=== PATIENT | female | born 1975 | race Caucasian/White ===

== ENCOUNTER 2017-12-01 14:13 | Observation (INO) | payer OTHER ==
[~2017-12-01] VITALS: Ht 162.6 cm; Wt 70.3 kg
[2017-12-01] MEDS ORDERED: SODIUM CHLORIDE 0.9% 1,000 ML IVB ONE (14:39)
[2017-12-01 15:08] LABS: Basophils # (auto) 0 uL; Basophils % (auto) 0.4 % (0.0-2.0); Eosinophils # (auto) 0.1 uL; Eosinophils % (auto) 1.6 % (0.0-7.0); Hematocrit 38.1 % (36.0-46.0); Hemoglobin 12.8 g/dL (12.2-16.2); Lymphocytes % (auto) 36.4 % (10.0-50.0); Mean Corpuscular Hgb Conc. 33.6 g/dL (32.0-36.0); Mean Corpuscular Volume 95.1 fL (80.0-100.0); Monocytes # (auto) 0.4 uL; Monocytes % (auto) 6.9 % (0.0-12.0); Neutrophils % (auto) 54.7 % (37.0-80.0); Nucleated Red Blood Cells % 0.1 %; Platelet Count (auto) 241 10^3/uL (140-450); Red Blood Cells 4.01 10^6/uL (4.0-5.20); Red Cell Distribution Width 13.2 % (11.8-14.3); White Blood Cell 5.5 10^3/uL (4.4-10.8)
[2017-12-01 15:22] LABS: Albumin 3.6 g/dL (3.4-5.0); BUN/Creatinine Ratio 12.8; Bilirubin, Total 0.3 mg/dL (0.2-1.0); Calcium 8.2 mg/dL (8.5-10.1); Potassium 3.5 mmol/L (3.5-5.1); Total Protein 6.8 g/dL (6.4-8.2)
[2017-12-01 15:28] LABS: INR 0.99 (0.9-1.15); Partial Thromboplastin Time 30.3 sec (23.78-33.04); Prothrombin Time 10.6 sec (9.27-12.13)
[2017-12-01 16:19] LABS: Urine Bacteria NONE SEEN /hpf (None Seen); Urine Blood Negative /uL (Negative); Urine Mucus FEW (None Seen); Urine Specific Gravity 1.004 (1.001-1.035); Urine WBC 1 /hpf (0 - 5)
[2017-12-01] MEDS ORDERED: KETOROLAC TROMETH 30 MG/ML 1ML VIAL IV ONE (17:00)
[2017-12-01] MEDS ORDERED: PROMETHAZINE HCL 25 MG/ML 1ML IV ONE (17:15)
[2017-12-01] MEDS ORDERED: SODIUM CHLORIDE 0.9% 1,000 ML IV ONE (17:15)
[2017-12-01] MEDS ORDERED: ONDANSETRON HCL 4 MG/2 ML VIAL IV ONE (17:15)
[2017-12-01] MEDS ORDERED: MORPHINE SULF INJ 2 MG/ML SYRINGE 1ML IV ONE (17:30)
[2017-12-01 19:43] VITALS: BP 138/97
== END 2017-12-01 21:05 | disposition home or self-care (01) | DRG 694 ==
LOC: EDBD 14:13 → ER 14:13 → OVERFLOW 14:14 → ER 21:05
PROVIDERS: ADMIT Family Medicine; ATTEND Family Medicine
DX: N20.0 Calculus of kidney (principal); R10.9 Unspecified abdominal pain; R11.2 Nausea with vomiting, unspecified; M79.7 Fibromyalgia
CPT/HCPCS: 36415; 70450; 71045; 74176; 80053; 81001; 82962; 83735; 84484; 85025; 85610; 85730; 93005; 96361; 96374; 96375; 99285; G0378; J1885; J2270; J2550

== ENCOUNTER 2025-01-02 18:55 | Emergency (ER) | payer OTHER ==
[~2025-01-02] VITALS: Ht 160 cm; Wt 66.1 kg
--- NOTE | 2025-01-02 19:42 | ED.PDOC ---
GI ASSESSMENT HPI Comments 49-year-old female who came to ER for abdominal pain. Patient has been experiencing sharp, constant right lower quadrant abdominal pain since this morning, radiating to her right flank and back area. She does have history of kidney stones, claims pain is not similar to kidney stones. Noted to have nausea but denies any vomiting or changes in bowel habits Chief Complaint: Abdominal Pain Time Seen by MD: 19:42 Primary Care Provider: NONE Reviewed Notes: Nurses Notes Allergies: Coded Allergies: Sulfa Antibiotics (Verified Allergy, Severe, 02/11/15) Home Meds Active Scripts Ondansetron HCl (Ondansetron Hydrochloride) 8 Mg Tab, 8 MG PO Q6HP PRN, #30 TAB Prov:VINAY BRICENO MD 01/02/25 Gabapentin (Once-Daily) (Gabapentin) 300 Mg Tab, 300 MG PO Q6HP PRN, #30 TAB Prov:VINAY BRICENO MD 01/02/25 Ondansetron HCl (Ondansetron Hydrochloride) 8 Mg Tab, 8 MG PO Q6HP PRN, #30 TAB Prov:VINAY BRICENO MD 01/02/25 Gabapentin (Once-Daily) (Gabapentin) 300 Mg Tab, 300 MG PO Q6HP PRN, #30 TAB Prov:VIANY BRICENO MD 01/02/25 Information Source: Patient Mode of Arrival: Ambulatory Timing: Hours Duration: Since onset Prehospital treatment: None Quality: Sharp, Stabbing Vomitus: None Stool: Normal Severity: Moderate Recent: None Recent Hx of: Abdominal Surgery Pain Location: RLQ Modifying Factors: Nothing Associated sign and symptoms: Nausea, Abdominal Pain Past Medical History PAST MEDICAL HISTORY: Kidney Stones Surgical History: Cholecystectomy, Hysterectomy Surgical History (Other): Hemorrhoidectomy ACCOUNT MANAGEMENT ASSISTANT History: Denies all ACCOUNT MANAGEMENT ASSISTANT Hx Family History Family History: No family hx of Heart ary, No family hx of HTN Social History Smoker: Non-Smoker Alcohol: Denies ETOH Use Drugs: Marijuana Lives In: Home Constitutional: denies: chills, diaphoresis, fatigue, fever, malaise, sweats, weakness, others EENTM: denies: blurred vision, double vision, ear bleeding, ear discharge, ear drainage, ear pain, ear ringing, eye pain, eye redness, hearing loss, mouth pain, mouth swelling, nasal discharge, nose bleeding, nose congestion, nose pain, photophobia, tearing, throat pain, throat swelling, voice changes, others Respiratory: denies: cough, hemoptysis, orthopnea, SOB at rest, shortness of breath, SOB with excertion, stridor, wheezing, others Cardiovascular: denies: chest pain, dizzy spells, diaphoresis, Dyspnea on exertion, edema, irregular heart beat, left arm pain, lightheadedness, palpitations, PND, syncope, others Gastrointestinal: reports: abdominal pain, nausea; denies: abdomen distended, blood streaked bowels, constipated, diarrhea, dysphagia, difficulty swallowing, hematemesis, melena, poor appetite, poor fluid intake, rectal bleeding, rectal pain, vomiting, others Genitourinary: denies: abnormal vagina bleeding, burning, dyspareunia, dysuria, flank pain, frequency, hematuria, incontinence, pain, , vagina discharge, urgency, others Neurological: denies: dizziness, fainting, headache, left sided numbness, left sided weakness, numbness, paresthesia, pre-existing deficit, right sided numbness, right sided weakness, seizure, speech problems, tingling, tremors, weakness, others Musculoskeletal: reports: back pain; denies: gout, joint pain, joint swelling, muscle pain, muscle stiffness, neck pain, others Integumetry: denies: bruises, change in color, change in hair/nails, dryness, laceration, lesions, lumps, rash, wounds, others Allergic/Immunocompromised: denies: Difficulty Healing, Frequent Infections, Hives, Itching, others Hematologic/Lymphatic: denies: anemia, blood clots, easy bleeding, easy bruising, swollen glands, others Endocrine: denies: excessive hunger, excessive sweating, excessive thirst, excessive urination, flushing, intolerance to cold, intolerance to heat, unexplained weight gain, unexplained weight loss, others Psychiatric: denies: anxiety, bipolar disorder, depression, hopeless, panic disorder, schizophrenia, sleepless, suicidal, others Physical Exam General Appearance: No Apparent Distress, Normal HEENT: Normal ENT Inspection, Pharynx Normal, TMs Normal Neck: Full Range of Motion, Non-Tender, Normal, Normal Inspection Respiratory: Chest Non-Tender, Lungs Clear, No Accessory Muscle Use, No Respiratory Distress, Normal Breath Sounds Cardiovascular: No Edema, No JVD, No Murmur, No Gallop, Normal Peripheral Pulses, Regular Rate/Rhythm Breast Exam: Deferred Gastrointestinal: No Organomegaly, No Pulsatile Mass, Normal Bowel Sounds, RLQ, Soft, Tenderness Genitalia: Deferred Pelvic: Deferred Rectal: Deferred Extremities: No calf tenderness, Normal capillary refill, Normal inspection, Normal range of motion, Non-tender, No pedal edema Musculoskeletal : Apperance: Normal Neurologic: Alert, customer care assistant II-XII nml as Tested, No Motor Deficits, Normal Affect, Normal Mood, No Sensory Deficits Cerebellar Function: Normal Reflexes: Normal Skin: Dry, Normal Color, Warm Lymphatic: No Adenopathy Was a procedure done? Was a procedure done?: No GI differential Dx Differential Diagnosis: Appendicitis, Constipation, Diverticular disease, Gastritis/PUD, Gastroenteritis, Ovarian cyst/torsion, Pancreatitis, PID, UTI, Urolithiasis X-Ray, Labs, Meds, VS Vital Signs Date Time Temp Pulse Resp B/P (MAP) Pulse Ox O2 Delivery O2 Flow Rate FiO2 01/02/25 22:55 Room Air* 0 21 01/02/25 22:55 97.7 89 16 137/87 (104) 98 97.7 01/02/25 18:58 97.8 92 17 142/89 96 97.8 Lab Test 01/02/25 21:05 01/02/25 19:43 Range/Units Urine Color Light-yellow Yellow Urine Clarity Clear Clear Urine pH 6.0 5.0-9.0 Urine Specific [place] 1.015 1.001-1.035 Urine Protein Negative Negative Urine Ketones Negative Negative Urine Blood Negative Negative /uL Urine Nitrite Negative Negative Urine Bilirubin Negative Negative Urine Urobilinogen Normal Negative mg/dL Urine Leukocyte Esterase Negative Negative /uL Urine RBC 1 0 - 4 /hpf Urine Microscopic WBC 1 0-5 /HPF Urine Squamous Epithelial Cells Few <5 /hpf Urine Bacteria None seen None Seen /hpf Urine Glucose Normal Normal mg/dL White Blood Count 9.2 4.4-10.8 10^3/uL Red Blood Count 4.46 4.0-5.20 10^6/uL Hemoglobin 14.3 12.2-16.2 g/dL Hematocrit 41.8 36.0-46.0 % Mean Corpuscular Volume 93.7 80.0-100.0 fL Mean Corpuscular Hemoglobin 32.0 28.0-32.0 pg Mean Corpuscular Hemoglobin Concent 34.2 32.0-36.0 g/dL Red Cell Distribution Width 13.6 11.8-14.3 % Platelet Count 298 140-450 10^3/uL Mean Platelet Volume 8.4 6.9-10.8 fL Neutrophils (%) (Auto) 58.1 37.0-80.0 % Lymphocytes (%) (Auto) 32.1 10.0-50.0 % Monocytes (%) (Auto) 7.6 0.0-12.0 % Eosinophils (%) (Auto) 1.9 0.0-7.0 % Basophils (%) (Auto) 0.3 0.0-2.0 % Neutrophils # (Auto) 5.3 1.6-8.6 10 ^3/uL Lymphocytes # (Auto) 3.0 0.4-5.4 10 ^3/uL Monocytes # (Auto) 0.7 0-1.3 10 ^3/uL Eosinophils # (Auto) 0.2 0-0.8 10 ^3/uL Basophils # (Auto) 0 0-0.2 10 ^3/uL Nucleated Red Blood Cells 0.0 % Sodium Level 139 136-145 mmol/L Potassium Level 4.0 3.5-5.1 mmol/L Chloride Level 104 98-107 mmol/L Carbon Dioxide Level 28 20-31 mmol/L Anion Gap 7 5-15 Blood Urea Nitrogen 14 9-23 mg/dL Creatinine 0.83 0.550-1.02 mg/dL Glomerular Filtration Rate Calc 86 >90 mL/min BUN/Creatinine Ratio 16.9 10.0-20.0 Serum Glucose 85 74-106 mg/dL Calcium Level 9.6 8.7-10.4 mg/dL Total Bilirubin 0.2 0.2-1.0 mg/dL Aspartate Amino Transferase (AST) 18 13-40 U/L Alanine Aminotransferase (ALT) 11 7-40 U/L Alkaline Phosphatase 73 46-116 U/L Total Protein 7.3 5.7-8.2 g/dL Albumin 4.5 3.2-4.8 g/dL Lipase 48 12-53 U/L Current Medications Medications (Trade) Dose Ordered Sig/Bennie Route Start Time Stop Time Status Last Admin Ondansetron HCl (Zofran Po) 4 mg ONCE ONCE PO 01/02/25 19:45 01/02/25 19:46 DC 01/02/25 21:03 Acetaminophen/ Hydrocodone Bitart ([place] 10/325MG Tab) 1 tab ONCE ONCE PO 01/02/25 19:45 01/02/25 19:46 DC 01/02/25 21:04 Time of 1ST Reevaluation: 19:40 Reevaluation 1ST: Unchanged Patient Education/Counseling: Diagnosis, Treatment Family Education/Counseling: No Family Present SEPSIS Sepsis Screen Date sepsis recognized/suspect: Jan 02, 2025 Time Sepsis recognized/suspect: 1899 Recent Procedure: No On Antibiotic Therapy: No Respiratory Rate >20: No Heart Rate >90: Yes Temp<36 C (96.8 F) or >38.3 C: No SBP <90 or MAP <65 mmHG: No New Acute Mental Status Change: No Is the patient on CPAP, BIPAP,: No Physician Orders Ct Ab Pel Wo Con-No Oral Or Iv (01/02/25 19:34) Vital Signs Date Time Temp Pulse Resp B/P (MAP) Pulse Ox O2 Delivery O2 Flow Rate FiO2 01/02/25 22:55 Room Air* 0 21 01/02/25 22:55 97.7 89 16 137/87 (104) 98 97.7 01/02/25 18:58 97.8 92 17 142/89 96 97.8 Laboratory Tests Test 01/02/25 19:43 White Blood Count 9.2 10^3/uL (4.4-10.8) Medications Medications Dose Ordered Sig/Bennie Route Start Time Stop Time Status Last Admin Dose Admin Acetaminophen/ Hydrocodone Bitart 1 tab ONCE ONCE PO 01/02/25 19:45 01/02/25 19:46 DC 01/02/25 21:04 Ondansetron HCl 4 mg ONCE ONCE PO 01/02/25 19:45 01/02/25 19:46 DC 01/02/25 21:03 Departure 1 Departure Time of Disposition: 21:30 Impression: Primary Impression: Acute abdominal pain Disposition: 01 HOME / SELF CARE / HOMELESS Condition: Stable e-Prescriptions Ondansetron HCl (Ondansetron Hydrochloride) 8 Mg Tab 8 MG PO Q6HP PRN, #30 TAB Prov: VINAY BRICENO MD 01/02/25 Gabapentin (Once-Daily) (Gabapentin) 300 Mg Tab 300 MG PO Q6HP PRN, #30 TAB Prov: VINAY BRICENO MD 01/02/25 Ondansetron HCl (Ondansetron Hydrochloride) 8 Mg Tab 8 MG PO Q6HP PRN, #30 TAB Prov: VINAY BRICENO MD 01/02/25 Gabapentin (Once-Daily) (Gabapentin) 300 Mg Tab 300 MG PO Q6HP PRN, #30 TAB Prov: VINAY BRICENO MD 01/02/25 Discharged With: Self Critical Care Note Critical Care Time?: No Stability Stability form required: No Heart Score Heart Score: Heart Score Response (Comments) Value History N/A 0 EKG N/A 0 Age N/A 0 Risk Factors N/A 0 Troponin N/A 0 Total 0 I personally scribed for VINAY BRICENO MD ([email or web address]) on 01/02/25 at 19:42. Electronically submitted by Luis Alfredo Díaz ([email or web address]). VINAY BRICENO MD Jan 02, 2025 19:42
[2025-01-02 20:05] LABS: Hematocrit 41.8 % (36.0-46.0); Hemoglobin 14.3 g/dL (12.2-16.2); Mean Corpuscular Hemoglobin 32.0 pg (28.0-32.0); Mean Corpuscular Volume 93.7 fL (80.0-100.0); Nucleated Red Blood Cells % 0.0 %
[2025-01-02 20:19] LABS: Alanine Aminotransferase 11 U/L (7-40); Albumin 4.5 g/dL (3.2-4.8); Alkaline Phosphatase 73 U/L (46-116); Anion Gap 7 (5-15); BUN/Creatinine Ratio 16.9 (10.0-20.0); Blood Urea Nitrogen 14 mg/dL (9-23); Calcium 9.6 mg/dL (8.7-10.4); Carbon Dioxide 28 mmol/L (20-31); Chloride 104 mmol/L (98-107); Glucose 85 mg/dL (74-106); Lipase 48 U/L (12-53); Potassium 4.0 mmol/L (3.5-5.1); Sodium 139 mmol/L (136-145); Total Protein 7.3 g/dL (5.7-8.2)
[2025-01-02 20:21] LABS: Bilirubin, Total 0.2 mg/dL (0.2-1.0)
[2025-01-02] MEDS: ONDANSETRON ODT 4 MG TAB PO ONE (21:03)
[2025-01-02] MEDS: HYDROcodone-ACET 10/325MG TAB PO ONE (21:04)
--- NOTE | 2025-01-02 21:19 | DVH ---
Exam: CT CT AB PEL WO CON-NO ORAL OR IV History: right flank pain Comparison Study: None TECHNIQUE: Multidetector CT of the abdomen and pelvis was performed from lung bases to pubic symphysi s. Imaging was performed without IV contrast. Axial, coronal, and sagittal multiplanar reformats were obtained from the axial data set by the technologist. RADIATION DOSE: DLP 392.34 mGy.cm; CTDI vol 6.71 mGy. Findings: Lungs: The lung bases are clear. Heart: No cardiomegaly or pericardial effusion. Liver: Unremarkable. Gallbladder: Cholecystectomy. Spleen: Unremarkable Pancreas: Unremarkable Adrenals: Unremarkable Kidneys: Nonobstructive right nephrolithiasis. No ureterolithiasis. GI tract: Unremarkable : Unremarkable. Vasculature: Mild aortoiliac atherosclerosis. Lymphadenopathy: Absent Peritoneum: No ascites Musculoskeletal: S shaped curvature of the thoracolumbar spine. Soft tissues: Unremarkable Impression: 1. No acute abdominopelvic abnormalities. 2. Nonobstructive right nephrolithiasis. No ureterolithiasis.
[2025-01-02 22:07] LABS: Urine Protein, UAD Negative (Negative)
[2025-01-02] MEDS ORDERED: GABA300T4 PO (22:18)
[2025-01-02] MEDS ORDERED: ONDA-180 PO (22:18)
[2025-01-02 22:55] VITALS: BP 137/87; PULSE 89; RESP 16; TEMP 97.7; O2SAT 98
== END 2025-01-02 23:14 | disposition home or self-care (01) ==
LOC: ER 18:55
DX: R10.31 Right lower quadrant pain (principal); Z90.49 Acquired absence of other specified parts of digestive tract; Z90.710 Acquired absence of both cervix and uterus; Z87.441 Personal history of nephrotic syndrome; Z87.442 Personal history of urinary calculi; Z88.2 Allergy status to sulfonamides
CPT/HCPCS: 36415; 74176; 80053; 81001; 83690; 85025; 99284; Q0162

== ENCOUNTER 2025-03-15 02:56 | Emergency (ER) | payer OTHER ==
[~2025-03-15] VITALS: Ht 160 cm; Wt 62.7 kg
[~2025-03-15 02:56] MED LIST: GABA300T4 PO; ONDA-180 PO
--- NOTE | 2025-03-15 03:11 | ED.PDOC ---
GI ASSESSMENT HPI Comments HPI: HPI: Poor Historian. 49-year-old female brought in by ambulance from home for evaluation of proximally six day history of abdominal pain and no bowel movement. Patient has recently had a breast augmentation and tummy tuck surgery recently and has not had a bowel movement since then. She has been using enema at home. No significant improvement. Patient has a associated nausea and vomiting. Patient had her surgery at [facility] [place] on March 06. Patient had Zofran and Phenergan at home without improvement. While en route to the ER, paramedics gave patient 4mg of Zofran and 250 cc NSS. prior to arrival. Past Medical History: Hypertension, lupus, fibromyalgia Past Surgical History: Hysterectomy, cholecystectomy, hemorrhoidectomy, breast augmentation, tummy tuck, kidney stones, abdominoplasty Social History: Denies REVIEW OF SYSTEMS: CONSTITUTIONAL: Denies acute: fever, diaphoresis, chills, HEAD: Denies acute: headache, photophobia Eyes: Denies acute: Double vision, vision loss, eye pain, eye discharge. EARS: Denies acute: tinnitus, hearing loss, ear discharge, ear pain, THROAT: Denies acute: sore throat, swelling, difficulty swallowing , pain with swal lowing, change in voice. NECK: Denies acute: neck pain, neck swelling, stiff neck. HEART: Denies acute : chest pain, palpitations, LUNGS: Denies acute: SOB, wheezing, cough, hemoptysis ABDOMEN: Denies acute: diarrhea, melena , hematemesis, hematochezia SKIN: Denies acute: rash, redness, lesions, itchiness. EXTREMITIES: Denies acute: calf pain, numbness, tingling, weakness, denies pain in extremity. Denies acute: Low back pain. Neuro: Denies acute: focal neurological deficit, motor or sensory focal neurological deficit, tremors, seizure like activity, confusion, dizziness, change in mental status, loss of bowel or bladder function, cauda equina like symptoms. : Denies acute: dysuria, hematuria, flank pain, increase in urinary frequency. PSYCH: Denies acute: hallucination, suicidal ideation, homicidal ideation. FEMALE: Denies acute: abnormal vaginal bleeding, foul odor, unusual discharge. PHYSICAL EXAM: General: ----moderate----acute distress, awake and alert. Head: normocephalic, atraumatic. No raccoon's eyes, no bella sign. Neck: supple, trachea is midline, no swelling. Throat: Normal phonation. Eyes:, no erythema, no purulent discharge, no proptosis, no icterus. Heart: regular rate, regular rhythm, no significant murmur appreciated. Lungs: no apparent respiratory distress, Able to speak in full sentences. No wheezing, no rhonchi, no crackles. No stridors Clear to auscultation bilaterally. Abdomen: Generalized tender to palpation, Patient is wearing abdominal tight belt postoperative. Patient has two BIRGIT drains with normal color fluids. Neuro: Awake, Alert, oriented to name, self, situation, follows commands GCS=15. Speech is normal. Skin: no petechia, no purpura, no cyanosis, non-pale, not jaundice. Lower extremities: --no - Pitting edema no deformity, no focal swelling, no calf TTP. Makes eye contact. moves all four extremities. Face: no apparent facial droop. ED COURSE: DISCLAIMER: This medical document was created using an electronic medical record system with voice recognition software and computerized dictation system. Although this document has been carefully reviewed, there might still be some phonetic and typographical errors. Occasional wrong-word or "sound-alike" substitutions may have occurred due to the inherent limitations of voice recognition software. These areas are purely typographical due to imperfections of the software programs and do not reflect any compromise in the patient's medical care. Please read the chart carefully and recognize, using context, where these substitutions have occurred. Chief Complaint: Abdominal Pain Time Seen by MD: 03:11 Primary Care Provider: NONE Reviewed Notes: Nurses Notes, Allergies Allergies: Coded Allergies: Sulfa Antibiotics (Verified Allergy, Severe, 02/11/15) Home Meds Active Scripts Ondansetron HCl (Ondansetron Hydrochloride) 8 Mg Tab, 8 MG PO Q6HP PRN, #30 TAB Prov:VINAY BRICENO MD 01/02/25 Gabapentin (Once-Daily) (Gabapentin) 300 Mg Tab, 300 MG PO Q6HP PRN, #30 TAB Prov:VINAY BRICENO MD 01/02/25 Ondansetron HCl (Ondansetron Hydrochloride) 8 Mg Tab, 8 MG PO Q6HP PRN, #30 TAB Prov:VINAY BRICENO MD 01/02/25 Gabapentin (Once-Daily) (Gabapentin) 300 Mg Tab, 300 MG PO Q6HP PRN, #30 TAB Prov:VINAY BRICENO MD 01/02/25 Information Source: Patient Mode of Arrival: EMS Past Medical History PAST MEDICAL HISTORY: Kidney Stones Surgical History: Cholecystectomy, Hysterectomy 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 Was a procedure done?: No GI differential Dx Differential Diagnosis: Gastritis/PUD, Gastroenteritis, Hernia, Dehydration X-Ray, Labs, Meds, VS Vital Signs Date Time Temp Pulse Resp B/P (MAP) Pulse Ox O2 Delivery O2 Flow Rate FiO2 03/15/25 05:31 81 16 96 Room Air* 0 21 03/15/25 03:06 98.8 89 20 148/96 95 98.8 Lab Test 03/15/25 05:37 03/15/25 03:18 Range/Units Prothrombin Time 11.0 9.3-11.8 sec Prothrombin Time INR 1.04 0.9-1.15 Activated Partial Thromboplast Time 28.2 24.5-34.5 SEC White Blood Count 10.5 4.4-10.8 10^3/uL Red Blood Count 3.31 L 4.0-5.20 10^6/uL Hemoglobin 10.8 L 12.2-16.2 g/dL Hematocrit 30.9 L 36.0-46.0 % Mean Corpuscular Volume 93.5 80.0-100.0 fL Mean Corpuscular Hemoglobin 32.7 H 28.0-32.0 pg Mean Corpuscular Hemoglobin Concent 35.0 32.0-36.0 g/dL Red Cell Distribution Width 13.6 11.8-14.3 % Platelet Count 447 140-450 10^3/uL Mean Platelet Volume 7.4 6.9-10.8 fL Neutrophils (%) (Auto) 83.6 H 37.0-80.0 % Lymphocytes (%) (Auto) 10.1 10.0-50.0 % Monocytes (%) (Auto) 5.9 0.0-12.0 % Eosinophils (%) (Auto) 0.0 0.0-7.0 % Basophils (%) (Auto) 0.4 0.0-2.0 % Neutrophils # (Auto) 8.8 H 1.6-8.6 10 ^3/uL Lymphocytes # (Auto) 1.1 0.4-5.4 10 ^3/uL Monocytes # (Auto) 0.6 0-1.3 10 ^3/uL Eosinophils # (Auto) 0 0-0.8 10 ^3/uL Basophils # (Auto) 0 0-0.2 10 ^3/uL Nucleated Red Blood Cells 0.1 % Sodium Level 139 136-145 mmol/L Potassium Level 3.1 L 3.5-5.1 mmol/L Chloride Level 102 98-107 mmol/L Carbon Dioxide Level 25 20-31 mmol/L Anion Gap 12 5-15 Blood Urea Nitrogen 10 9-23 mg/dL Creatinine 0.68 0.550-1.02 mg/dL Glomerular Filtration Rate Calc 107 >90 mL/min BUN/Creatinine Ratio 14.7 10.0-20.0 Serum Glucose 134 H 74-106 mg/dL Lactic Acid Level 1.0 0.4-2.0 mmol/L Calcium Level 9.3 8.7-10.4 mg/dL Total Bilirubin 0.5 0.2-1.0 mg/dL Aspartate Amino Transferase (AST) 26 13-40 U/L Alanine Aminotransferase (ALT) 23 7-40 U/L Alkaline Phosphatase 70 46-116 U/L Total Protein 6.6 5.7-8.2 g/dL Albumin 3.9 3.2-4.8 g/dL Lipase 39 12-53 U/L Current Medications Medications (Trade) Dose Ordered Sig/Bennie Route Start Time Stop Time Status Last Admin Potassium Chloride (Klor-Con Tablet) 40 meq ONCE ONCE PO 03/15/25 04:30 03/15/25 06:14 DC 03/15/25 04:46 Sodium Chloride 1,000 ml @ 1,000 mls/hr Q1H ONCE IV 03/15/25 04:30 03/15/25 05:29 DC 03/15/25 04:46 Ondansetron HCl (Zofran) 8 mg ONCE ONCE IV 03/15/25 04:30 03/15/25 04:31 DC 03/15/25 04:46 Lactulose 60 ml ONCE ONCE PO 03/15/25 05:00 03/15/25 05:01 DC 03/15/25 05:02 Metoclopramide HCl (Reglan Injection) 5 mg ONCE ONCE IV 03/15/25 05:00 03/15/25 05:01 DC 03/15/25 05:03 [place] [address] Ph: [phone] DIAGNOSTIC IMAGING Diagnostic Imaging Report : [id number] Signed PATIENT: DERICK TERAN ACCT: [id number] UNIT: [id number] : 1975 LOC: ER ROOM / BED: / AGE / SEX: 49 / F ADM STATUS: [facility] ER SERVICE [id number] ORDERING PHYSICIAN: CHRISTIANO JIMENEZ DO PROCEDURE(s): ABPL - CT AB PEL WO CON-NO ORAL OR IV REASON: ABDOMINAL PAIN, N/V ORDER NUMBER(s): [id number], ACCESSION NUMBER(s): [id number] MEDICAL RECORDS NUMBER: [id number] PROCEDURE: CT CT AB PEL WO CON-NO ORAL OR IV DATE: 03/15/2025 04:00 AM HISTORY: ABDOMINAL PAIN, N/V TECHNIQUE: CT of the abdomen and pelvis is performed without IV contrast. CONTRAST: none Oral Contrast: No oral contrast was utilized. COMPARISON: CT CT AB PEL WO CON-NO ORAL OR IV on DOS: 01/02/25 RADIATION DOSE INFORMATION: Automated exposure control dose reduction techniques were used. FINDINGS: Lung bases: Limited evaluation of the lung bases demonstrates no focal airspace process or pneumothorax. Mediastinum:Lower mediastinal structures appear unremarkable. Liver: The liver is normal in size. There is no focal liver lesion. Biliary ducts: There is no evidence of intrahepatic or extrahepatic biliary ductal dilatation. Gallbladder: No abnormality is seen of the gallbladder. Spleen: The spleen is normal in size without focal lesion. Stomach: The stomach appears unremarkable. Pancreas: The pancreas is unremarkable. Adrenal glands: The adrenal glands are unremarkable. Kidneys: The kidneys are normal in size and are symmetric. There is no evidence of hydronephrosis. No focal renal lesion is noted. Small nonobstructing stones are seen in the right kidney. Aorta and IVC: The aorta and IVC are patent and are normal in size. Mesenteric vessels: Major mesenteric vessels appear to be intact. Bowel: Prominent amount of stool may represent constipation. No evidence of bowel obstruction is seen. Appendix: The appendix is not seen. Pelvis:Pelvic structures appear unremarkable. Lymph nodes: There is no evidence of lymphadenopathy. Osseous structures: The osseous structures are intact. No lytic or blastic osseous lesion is noted. Scoliosis of the lumbar spine is noted Free fluid/free air: None The right rectus muscle appears enlarged. Axial dimensions 7 cm 3.3 cm are measured. This is a change from prior study were it measured 5 cm x 1.2 cm. This is concerning for a rectus sheath hematoma. There is note made of a overlying line device in the subcutaneous tissues which may relate to this abnormality. 2nd subcutaneous device is seen posteriorly. IMPRESSION: 1. Enlarged right rectus muscle concerning for a rectus sheath hematoma. 2. Prominent amount of stool May suggest constipation. No evidence of bowel obstruction seen. ATED BY: EDUAR GOLD MD DICTATED DATE/TIME: 03/15/25427 SIGNED BY: EDUAR GOLD MD SIGNED DATE/TIME: 03/15/25427 CC: Time of 1ST Reevaluation: 03:10 Reevaluation 1ST: Unchanged Time of 2ND Reevaluation: 05:26 (The case was discussed with the [facility] admitting team (HPI, physical exam, labs and diagnostic tests that were available at the time of disposition, ED course, treatment plan) on the phone. They agreed to transfer the patient to their service by [facility] for further evaluation and treatment. Dr. TIM---. Authorization number is--[id number]) Reevaluation 2ND: Unchanged Patient Education/Counseling: Diagnosis, Treatment Family Education/Counseling: Other SEPSIS Sepsis Screen Physician Orders Urinalysis (03/15/25 03:05) Ct Ab Pel Wo Con-No Oral Or Iv (03/15/25 03:05) Npo Except For Medications (03/15/25 04:53) Npo (Nothing By Mouth) Diet (03/15/25 Breakfast) * Surgical Consult (03/15/25 ) Imaging Transfer Request (03/15/25 05:41) Potassium Chl 20meq/100ml (03/15/25 06:15) Vital Signs Date Time Temp Pulse Resp B/P (MAP) Pulse Ox O2 Delivery O2 Flow Rate FiO2 03/15/25 05:31 81 16 96 Room Air* 0 21 03/15/25 03:06 98.8 89 20 148/96 95 98.8 Laboratory Tests Test 03/15/25 03:18 Lactic Acid Level 1.0 mmol/L (0.4-2.0) White Blood Count 10.5 10^3/uL (4.4-10.8) Medications Medications Dose Ordered Sig/Bennie Route Start Time Stop Time Status Last Admin Dose Admin Lactulose 60 ml ONCE ONCE PO 03/15/25 05:00 03/15/25 05:01 DC 03/15/25 05:02 Metoclopramide HCl 5 mg ONCE ONCE IV 03/15/25 05:00 03/15/25 05:01 DC 03/15/25 05:03 Ondansetron HCl 8 mg ONCE ONCE IV 03/15/25 04:30 03/15/25 04:31 DC 03/15/25 04:46 Potassium Chloride 40 meq ONCE ONCE PO 03/15/25 04:30 03/15/25 06:14 DC 03/15/25 04:46 Sodium Chloride 1,000 ml @ 1,000 mls/hr Q1H ONCE IV 03/15/25 04:30 03/15/25 05:29 DC 03/15/25 04:46 Departure 1 Departure Time of Disposition: 09:09 (Patient is noted to be transferred to [facility]. Discussed the case with with [facility] and then [facility]'s plastic surgeon. Recommended the patient go home and patient we will follow up with her plastic surgeon.) Impression: Primary Impression: Constipation Additional Impression: Rectus sheath hematoma Disposition: HOME / SELF CARE / HOMELESS Condition: Stable Additional Instructions: It is important to wear your abdominal binder 247. You should follow up with your surgeon at your appointment in. If your symptoms worsen or you have any other concerns please return to the emergency room Discharged With: Self Critical Care Note Critical Care Time?: No I personally scribed for CHRISTIANO JIMENEZ DO ([email or web address]) on 03/15/25 at 03:11. Electronically submitted by Luis Alfredo Díaz ([facility] I personally scribed for CHRISTIANO JIMENEZ DO ([email or web address]) on 03/15/25 at 03:19. Electronically submitted by Luis Alfredo Díaz ([facility]). I personally scribed for CHRISTIANO JIMENEZ DO ([email or web address]) on 03/15/25 at 03:21. Electronically submitted by Luis Alfredo Díaz ([facility]). I personally scribed for CHRISTIANO JIMENEZ DO ([email or web address]) on 03/15/25 at 04:24. Electronically submitted by Luis Alfrdeo Díaz ([facility]). I personally scribed for CHRISTIANO JIMENEZ DO ([email or web address]) on 03/15/25 at 04:39. Electronically submitted by Luis Alfredo Díaz ([facility]). I personally scribed for CHRISTIANO JIMENEZ DO ([email or web address]) on 03/15/25 at 05:24. Electronically submitted by Luis Alfredo Díaz ([facility]). CHRISTIANO JIMENEZ DO Mar 15, 2025 03:11 DEEP SENA MD Mar 15, 2025 09:11
[2025-03-15 03:57] LABS: Hemoglobin 10.8 g/dL (12.2-16.2)
[2025-03-15 04:00] LABS: Hematocrit 30.9 % (36.0-46.0); Mean Corpuscular Hemoglobin 32.7 pg (28.0-32.0); Mean Corpuscular Volume 93.5 fL (80.0-100.0); Nucleated Red Blood Cells % 0.1 %
[2025-03-15 04:15] LABS: Alanine Aminotransferase 23 U/L (7-40); Albumin 3.9 g/dL (3.2-4.8); Alkaline Phosphatase 70 U/L (46-116); Anion Gap 12 (5-15); BUN/Creatinine Ratio 14.7 (10.0-20.0); Bilirubin, Total 0.5 mg/dL (0.2-1.0); Blood Urea Nitrogen 10 mg/dL (9-23); Calcium 9.3 mg/dL (8.7-10.4); Carbon Dioxide 25 mmol/L (20-31); Chloride 102 mmol/L (98-107); Lipase 39 U/L (12-53); Sodium 139 mmol/L (136-145); Total Protein 6.6 g/dL (5.7-8.2)
[2025-03-15 04:16] LABS: Glucose 134 mg/dL (74-106); Potassium 3.1 mmol/L (3.5-5.1)
--- NOTE | 2025-03-15 04:30 | DVH ---
MEDICAL RECORDS NUMBER: [id number] PROCEDURE: CT CT AB PEL WO CON-NO ORAL OR IV DATE: 03/15/2025 04:00 AM HISTORY: ABDOMINAL PAIN, N/V TECHNIQUE: CT of the abdomen and pelvis is performed without IV contrast. CONTRAST: none Oral Contrast: No oral contrast was utilized. COMPARISON: CT CT AB PEL WO CON-NO ORAL OR IV on DOS: 01/02/25 RADIATION DOSE INFORMATION: Automated exposure control dose reduction techniques were used. FINDINGS: Lung bases: Limited evaluation of the lung bases demonstrates no focal airspace process or pneumothorax. Mediastinum:Lower mediastinal structures appear unremarkable. Liver: The liver is normal in size. There is no focal liver lesion. Biliary ducts: There is no evidence of intrahepatic or extrahepatic biliary ductal dilatation. Gallbladder: No abnormality is seen of the gallbladder. Spleen: The spleen is normal in size without focal lesion. Stomach: The stomach appears unremarkable. Pancreas: The pancreas is unremarkable. Adrenal glands: The adrenal glands are unremarkable. Kidneys: The kidneys are normal in size and are symmetric. There is no evidence of hydronephrosis. No focal renal lesion is noted. Small nonobstructing stones are seen in the right kidney. Aorta and IVC: The aorta and IVC are patent and are normal in size. Mesenteric vessels: Major mesenteric vessels appear to be intact. Bowel: Prominent amount of stool may represent constipation. No evidence of bowel obstruction is seen. Appendix: The appendix is not seen. Pelvis:Pelvic structures appear unremarkable. Lymph nodes: There is no evidence of lymphadenopathy. Osseous structures: The osseous structures are intact. No lytic or blastic osseous lesion is noted. Scoliosis of the lumbar spine is noted Free fluid/free air: None The right rectus muscle appears enlarged. Axial dimensions 7 cm 3.3 cm are measured. This is a change from prior study were it measured 5 cm x 1.2 cm. This is concerning for a rectus sheath hematoma. There is note made of a overlying line device in the subcutaneous tissues which may relate to this abnormality. 2nd subcutaneous device is seen posteriorly. IMPRESSION: 1. Enlarged right rectus muscle concerning for a rectus sheath hematoma. 2. Prominent amount of stool May suggest constipation. No evidence of bowel obstruction seen.
[2025-03-15] MEDS: ONDANSETRON HCL 4 MG/2 ML VIAL IV ONE (04:46)
[2025-03-15] MEDS: POTASSIUM CHL 20 Meq TABLET PO ONE (04:46)
[2025-03-15] MEDS: SODIUM CHLORIDE 0.9% 1,000 ML IV ONE (04:46)
[2025-03-15] MEDS: LACTULOSE 20Gm/30ML SOLN PO ONE (05:02)
[2025-03-15] MEDS: METOCLOPRAMIDE HCL 5MG/ml INJ 2ml VIAL IV ONE (05:03)
[2025-03-15 05:31] VITALS: PULSE 81; RESP 16; O2SAT 96
[2025-03-15 06:24] LABS: INR 1.04 (0.9-1.15); Partial Thromboplastin Time 28.2 SEC (24.5-34.5); Prothrombin Time 11.0 sec (9.3-11.8)
[2025-03-15 08:00] VITALS: PULSE 81; RESP 27; TEMP 98.4; O2SAT 96
[2025-03-15] MEDS: POTASSIUM CHL 20MEQ/100ML 100 ML IV SCH (08:15)
[2025-03-15 09:30] VITALS: BP 149/96; PULSE 82; RESP 20; O2SAT 96
== END 2025-03-15 10:05 | disposition home or self-care (01) ==
LOC: EDUNIT# 02:56 → ER 02:56 → EDBD 02:56 → ER 10:01
DX: S30.11XA Contusion of abdominal wall, initial encounter (principal); K59.00 Constipation, unspecified; I10 Essential (primary) hypertension; Z90.710 Acquired absence of both cervix and uterus; Z90.49 Acquired absence of other specified parts of digestive tract; Z88.2 Allergy status to sulfonamides; X58.XXXA Exposure to other specified factors, initial encounter; Y93.89 Activity, other specified; Y92.89 Other specified places as the place of occurrence of the external cause; Y99.8 Other external cause status
CPT/HCPCS: 36415; 74176; 80053; 83605; 83690; 85025; 85610; 85730; 96361; 96374; 96375; 99285; J2405; J2765; J7030